=== PATIENT | male | born 1955 | race Asian ===

== ENCOUNTER → 2024-02-15 16:39 | Outpatient (REF) | payer MEDICARE, OTHER, SELFPAY | LOC: RAD 16:39 | PROVIDERS: ATTENDING PHYSICIAN Internal Medicine Critical Care Medicine | DX: J90 Pleural effusion, not elsewhere classified (principal) | CPT/HCPCS: 71046 ==

== ENCOUNTER → 2024-02-21 13:53 | Outpatient (REF) | payer MEDICARE, SELFPAY ==
[2024-02-21 14:15] VITALS: BP 117/75; BP_SYST 82
[2024-02-21 14:45] VITALS: BP 116/71; BP_SYST 74
[2024-02-21 15:07] VITALS: BP 114/60
[2024-02-21 15:36] LABS: Body Fluid pH 7.49
[2024-02-21 15:41] LABS: Body Fluid Mononuclear 97.7 %; Body Fluid Polymorphonuclear 2.3 %; Body Fluid WBC 794 /CUMM
[2024-02-21 15:48] LABS: Body Fluid Glucose 133 mg/dl; Body Fluid LDH 179 U/L; Body Fluid Protein 3.9 g/dl
[2024-02-21 15:56] LABS: Body Fluid Second Tech EYM
== END ==
LOC: RADI 13:53
PROVIDERS: ATTENDING PHYSICIAN Internal Medicine Critical Care Medicine; FAMILY PHYSICIAN Internal Medicine
DX: J90 Pleural effusion, not elsewhere classified (principal); R06.02 Shortness of breath
CPT/HCPCS: 88305; 32555; 71045; 82945; 83615; 83986; 84157; 87015; 87070; 87102; 87116; 87205; 87206; 88112; 88341; 88342; 89051

== ENCOUNTER → 2024-03-19 11:33 | Outpatient (REF) | payer OTHER, SELFPAY | LOC: RAD 11:33 | PROVIDERS: ATTENDING PHYSICIAN Nurse Practitioner Family | DX: R05.9 Cough, unspecified (principal) | CPT/HCPCS: 71046 ==

== ENCOUNTER → 2024-07-18 09:50 | Outpatient (REF) | payer OTHER, SELFPAY | LOC: RCS 09:50 | PROVIDERS: ATTENDING PHYSICIAN Internal Medicine Cardiovascular Disease; FAMILY PHYSICIAN Internal Medicine | DX: I50.31 Acute diastolic (congestive) heart failure (principal) | CPT/HCPCS: 93225; 93226 ==

== ENCOUNTER 2025-01-07 10:57 | Emergency (ER) | payer OTHER, SELFPAY ==
[2025-01-07 11:06] VITALS: BP 152/72
[2025-01-07 12:08] LABS: % Basophils 0.6 % (0-2); % Eosinophils 4.9 % (0-6); % Lymphocytes 21.3 % (20.5-51.1); % Monocytes 11.7 % (1.7-9.3); % Neutrophils 60.5 % (42.2-75.2); Absolute Eosinophils 0.2 10^3/uL (0-0.7); Absolute Immature Granulocytes 0.1 10^3/uL (0-0.05); Absolute Lymphocytes 1.1 10^3/uL (1.2-3.4); Absolute Monocytes 0.6 10^3/uL (0.1-0.6); Hemoglobin 14.6 g/dL (13.0-18.0); Mean Corp Hgb Conc. 32.4 g/dL (33.0-37.0); Mean Corpuscular Hgb 31.3 pg (27.0-31.0); Mean Corpuscular Volume 96.6 fL (80.0-94.0); Mean Platelet Volume 10.4 fL (7.4-10.4); Nucleated Red Blood Cells % 0 % (-); Platelet Count 238 10^3/uL (130-400); Red Blood Cell Count 4.66 10^6/uL (4.70-6.10); Red Cell Dist. Width 13.1 % (11.5-14.5); White Blood Cell Count 4.9 10^3/uL (4.8-10.8)
[2025-01-07 12:23] LABS: ALT (SGPT) 43 U/L (0-50); AST (SGOT) 51 U/L (17-59); Albumin 4.3 g/dl (3.5-5.0); Alkaline Phosphatase 32 U/L (38-126); Blood Urea Nitrogen 25 mg/dl (9-20); Calcium 9.4 mg/dl (8.4-10.2); Carbon Dioxide 28 mmol/L (22-30); Chloride 103 mmol/L (98-107); Glucose 133 mg/dl (70-99); Potassium 5.2 mmol/L (3.5-5.1); Sodium 135 mmol/L (135-145); Total Bilirubin 1.6 mg/dl (0.2-1.3); Total Protein 6.7 g/dl (6.3-8.2); eGFR 59.84
[2025-01-07 12:32] LABS: Troponin I 0.031 ng/ml
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
[2025-01-07 13:58] VITALS: BP 146/84
== END 2025-01-07 14:00 | disposition home or self-care (01) ==
LOC: EMR 10:57
PROVIDERS: Emergency Medicine; EMERGENCY PHYSICIAN Emergency Medicine; FAMILY PHYSICIAN Internal Medicine
DX: S20.212A Contusion of left front wall of thorax, initial encounter (principal); W50.0XXA Accidental hit or strike by another person, initial encounter
CPT/HCPCS: 99285; 71101; 80053; 84484; 85025; 93005

== ENCOUNTER → 2025-03-05 12:36 | Outpatient (REF) | payer OTHER, SELFPAY | LOC: HWRAD 12:36 | PROVIDERS: ATTENDING PHYSICIAN Internal Medicine; FAMILY PHYSICIAN Internal Medicine | DX: N18.32 Chronic kidney disease, stage 3b (principal); E11.22 Type 2 diabetes mellitus with diabetic chronic kidney disease | CPT/HCPCS: 76770 ==